=== PATIENT | male | born 1995 | race Caucasian/White ===

== ENCOUNTER 2018-01-16 03:44 | Emergency (ER) | payer OTHER ==
[~2018-01-16] VITALS: Ht 190.5 cm; Wt 92.5 kg
[2018-01-16 04:02] VITALS: BP 137/74; Ht 190.5 cm; Wt 92.5 kg
== END 2018-01-16 06:01 | disposition left against medical advice (07) ==
LOC: ED 03:44
DX: Z53.21 Procedure and treatment not carried out due to patient leaving prior to being seen by health care provider (principal)